=== PATIENT | female | born 1975 | race American Indian/Alaskan Native ===

== ENCOUNTER 2017-02-11 17:57 | Emergency (ER) | payer MEDICAID ==
--- NOTE | 2017-02-11 21:17 | Emergency Department Report ---
Head Injury w/o Laceration - HPI Chief Complaint: Head Injury Stated Complaint: HEAD INJURY Time Seen by Provider: 02/11/17 20:32 Occurred When: Today Mechanism: Direct Blow Location: Frontal Severity: moderate Head Inj w/o Lac: Yes Headache (frontal headache), No Loss of Consciousness, No Nausea, No Blurred Vision, No Altered Mental Status, No Focal Deficit, No Swelling, No Bruising, No Break in Skin, No Bleeding Other History: This is a 41-year-old female that reports that she has a headache after standing up and hitting her head on the corner of her bathroom cabinet. She denies any loss of consciousness. Denies any cuts to her head. She is here for physical assessment for possible bleeding internally. She reports that she's having headache 7 out of 10 until. Denies any dizziness, blurred vision. Denies any neck pain or stiffness. ED General PMH - Past Medical History General Medical History: other (Anxiety) Surgical History: other ( 2) - Family History Significant Family History: no pertinent family hx - Social History Smoking Status: Never Smoker Alcohol Use: none Drug Use: N ED Neuro ROS - Review of Systems Constitutional: no symptoms reported Eyes (ROS): no symptoms reported Ears, Nose, Mouth, Throat: no symptoms reported Respiratory: no symptoms reported Cardiology: no symptoms reported Gastrointestinal/Abdominal: no symptoms reported Musculoskeletal: no symptoms reported Skin: no symptoms reported Neurological: headache Hematologic/Lymphatic: no symptoms reported Head Injury W/O Lac Exam - Exam General: Vital signs noted. No distress. Alert and acting appropriately. This is a 41-year-old female well-nourished well-developed in no acute distress. Head: Yes Pupils are PERRL, No Hemotympanum, No Hematoma/Ecchymosis, No Epistaxis, No Stepoff/Deformity, No Laceration, No Abrasion Chest, Abd, & Ext: Yes Clear Lung Sounds, Yes Regular Heart Rhythm, No Neck Pain , No Chest Injury/Pain, No Heart Murmur, No Abdominal Tenderness, No Back Tenderness, No Extremity Injury Neuroligical (Head Inj W/O Lac: Yes Normal Speech (no facial droop.), Yes Normal Gait, No Lethargy, No Disorientation, No Focal Numbness, No Focal Weakness Exam: Additional neurological: GCS of 15, negative Romberg and negative pronator drift. Neck:, Range of motion ,supple, no C-spine tenderness. ED Disposition Clinical Impression: Head injury, closed Qualifiers: Encounter type: initial encounter Qualified Code(s): S09.90XA - Unspecified injury of head, initial encounter Acute headache Qualifiers: Headache type: post-traumatic Intractability: not intractable Qualified Code(s) : G44.319 - Acute post-traumatic headache, not intractable Disposition: DISCHARGED TO HOME OR SELFCARE Is pt being admited?: No Does the pt Need Aspirin: No Condition: Stable Instructions: Minor Head Injury (ED), Acute Headache (ED) Additional Instructions: Please read discharge instructions and minor head injury . If you develop nausea, vomiting, increasing headache, dizziness, blurred vision and/or sleep please return to emergency room [facility] otherwise Follow up in emergency room in 24 hours for reevaluation Prescriptions: traMADol [Ultram] 50 mg PO Q6HR PRN #12 tablet PRN Reason: Pain Referrals: PRIMARY CARE, [Primary Care Provider] - 02/13/17 Forms: Work/School Release Form(ED) ED Medical Decision Making - Radiology Data Radiology results: report reviewed CT scan of the head reveals no acute findings. - Medical Decision Making ED course: Patient status post minor head injury without any loss of consciousness. CT scan revealed no acute findings. Thiswas comunicated to patient. Discharged home with prescription for ultram.
[2017-02-11 21:47] VITALS: BP 134/83
--- NOTE | 2017-02-11 22:31 | Cat Scan Report ---
FINAL REPORT EXAM: CT HEAD/BRAIN WO CON HISTORY: head injury with headache TECHNIQUE: CT was performed from the foramen magnum through the vertex in the axial plane without the use of intravenous contrast. PRIORS: None. FINDINGS: The quevedo/white matter attenuation pattern is normal. There is no mass lesion or mass effect. There are no abnormal extra-axial fluid collections. There is no evidence of acute intracranial hemorrhage or infarct. The ventricles are of normal size and configuration. The skull and orbits are unremarkable. The visualized paranasal sinuses are clear. IMPRESSION: Normal CT of the head.
== END 2017-02-11 23:01 | disposition home or self-care (01) ==
LOC: ED 17:57
DX: S09.90XA Unspecified injury of head, initial encounter (principal); G44.319 Acute post-traumatic headache, not intractable; F41.9 Anxiety disorder, unspecified; W22.8XXA Striking against or struck by other objects, initial encounter; Y93.89 Activity, other specified; Y99.8 Other external cause status; Y92.89 Other specified places as the place of occurrence of the external cause
CPT/HCPCS: 70450